=== PATIENT | female | born 1975 | race Caucasian/White ===

== ENCOUNTER 2016-12-25 05:22 | Emergency (ER) | payer SELFPAY ==
[~2016-12-25] VITALS: Ht 160 cm; Wt 90.7 kg
[~2016-12-25 05:22] MED LIST: CARV3.122 PO; HYDR-2666 PO; LISI-334 PO; TORADOL; [UNRECOGNIZED DRUG - CODE] PO
[2016-12-25 05:37] VITALS: BP 181/91
[2016-12-25] MEDS ORDERED: HYDR-2666 PO (05:37)
[2016-12-25] MEDS ORDERED: CYCL5TAB PO (05:37)
--- NOTE | 2016-12-25 05:37 | PHYS DOC ---
Past Medical History Past Medical History: Arthritis Additional Past Medical Histor: CARDIOMYOPATHY, COLITIS Past Surgical History: Additional Past Surgical Histo: TOE Alcohol Use: None Drug Use: None Adult General Chief Complaint Chief Complaint: LOWER BACK PAIN OR INJURY [facility] HPI Patient is a 41 year old female who presents with left low back pain that radiates through to her posterior leg that is constant with intermittent spasms and shooting pains. This pain started after trying to lift something one week ago and is gradually worsening. She denies saddle anesthesia, bowel or bladder dysfunction, numbness, tingling, weakness, abdominal pain, fever or chills, dysuria, constipation, diarrhea. No direct trauma. Review of Systems Review of Systems Constitutional: Denies fever or chills [] Eyes: Denies change in visual acuity, redness, or eye pain [] HENT: Denies nasal congestion or sore throat [] Respiratory: Denies cough or shortness of breath [] Cardiovascular: No additional information not addressed in HPI [] GI: Denies abdominal pain, nausea, vomiting, bloody stools or diarrhea [] : Denies dysuria or hematuria [] Musculoskeletal: Denies joint pain [] Integument: Denies rash or skin lesions [] Neurologic: Denies headache, focal weakness or sensory changes [] Endocrine: Denies polyuria or polydipsia [] Current Medications Current Medications Current Medications Medications (Trade) Dose Ordered Sig/Jama Start Time Stop Time Status Last Admin Dose Admin Acetaminophen/ Hydrocodone Bitart (Lortab 5/325) 1 tab 1X ONCE 12/25/16 06:00 12/25/16 06:01 Cyclobenzaprine HCl (Flexeril) 5 mg 1X ONCE 12/25/16 05:45 12/25/16 05:46 UNV Dexamethasone (Decadron) 10 mg 1X ONCE 12/25/16 06:00 12/25/16 06:01 Allergies Allergies Allergies Coded Allergies Type Severity Reaction Last Updated Verified Sulfa (Sulfonamide Antibiotics) Allergy Intermediate RASH 01/20/15 No Physical Exam Physical Exam Constitutional: Well developed, well nourished, no acute distress, non-toxic appearance. [] HENT: Normocephalic, atraumatic, bilateral external ears normal, oropharynx moist, nose normal. [] Eyes: PERRLA, EOMI. [] Neck: Normal range of motion, supple. [] Cardiovascular:Heart rate regular rhythm [] Lungs & Thorax: Bilateral breath sounds clear to auscultation [] Abdomen: Bowel sounds normal, soft, no tenderness. [] Skin: Warm, dry, no erythema, no rash. [] Back: No midline spinal tenderness, no CVA tenderness. Has left lumbar paraspinal tenderness with no visual or palpable abnormality. Positive straight leg raise on the left [] Extremities: No tenderness, ROM intact, no edema, equal DP pulses 2+. [] Neurologic: Alert and oriented X 3, normal motor function, normal sensory function, no focal deficits noted. [] Psychologic: Affect normal, judgement normal, mood normal. [] Current Patient Data Vital Signs Vital Signs Date Time Temp Pulse Resp B/P (MAP) Pulse Ox O2 Delivery O2 Flow Rate FiO2 12/25/16 05:37 98.0 79 20 97 Room Air 98.0 Course & Med Decision Making Course & Med Decision Making Discussed symptomatic care for likely sciatica. Return precautions given. She understands and agrees with plan. Dragon Disclaimer Dragon Disclaimer This electronic medical record was generated, in whole or in part, using a voice recognition dictation system. Departure Departure Impression: Primary Impression: Low back pain Disposition: HOME, SELF-CARE Condition: STABLE Referrals: JAYLON DON (PCP) Patient Instructions: Sciatica, [id number] Additional Instructions: Take Tylenol or ibuprofen as needed for moderate pain. Take cyclobenzaprine ( Flexeril) for muscle spasm. Take hydrocodone as needed for severe pain. Do not drink, drive or operate heavy machinery after taking hydrocodone or cyclobenzaprine as it may make you sleepy. Follow-up with your primary care doctor within one week. Return for any concerns. Scripts Cyclobenzaprine Hcl (CYCLOBENZAPRINE HCL) 5 Mg Tablet 1 TAB PO TID Y for MUSCLE SPASMS, #10 TAB Prov: Daljit ROWAN MD 12/25/16 Hydrocodone Bit/Acetaminophen (HYDROCODONE-APAP 5-325 ) 1 Each Tablet 1-2 TAB PO PRN Q4-6HRS Y for PAIN for 10 Days, TAB 0 Refills Prov: Daljit ROWAN MD 12/25/16 Problem Qualifiers Primary Impression: Low back pain Chronicity: acute Back pain laterality: left Sciatica presence: with sciatica Sciatica laterality: sciatica of left side Qualified Codes: M54.42 - Lumbago with sciatica, left side Daljit ROWAN MD December 25, 2016 05:37
[2016-12-25] MEDS ORDERED: HYDROcodone/APAP 5/325MG 1 TAB TABLET PO ONE (06:00)
[2016-12-25] MEDS ORDERED: CYCLOBENZAPRINE 10 MG TABLET. PO ONE (06:00)
[2016-12-25] MEDS ORDERED: DEXAMETHASONE 4 MG TABLET PO ONE (06:00)
== END 2016-12-25 05:53 | disposition home or self-care (01) ==
LOC: ER 05:22
DX: M54.5 Low back pain (principal); M19.90 Unspecified osteoarthritis, unspecified site; I42.9 Cardiomyopathy, unspecified; Z88.2 Allergy status to sulfonamides
CPT/HCPCS: 99284; J8540

== ENCOUNTER 2018-04-20 16:50 | Emergency (ER) | payer SELFPAY ==
[~2018-04-20] VITALS: Ht 157.5 cm; Wt 90.7 kg
[~2018-04-20 16:50] MED LIST changes: +CYCL5TAB PO; -HYDR-2666 PO; +HYDR-2758 PO
[2018-04-20 18:08] VITALS: BP 148/92
[2018-04-20] MEDS ORDERED: IBUPROFEN 600 MG TABLET. PO ONE (18:45)
--- NOTE | 2018-04-20 19:16 | RAD ---
AP and lateral right forearm radiographs 04/20/2018 CLINICAL HISTORY: Injury to the right forearm. AP and lateral digital radiographs of the right forearm were obtained. No fracture or dislocation is seen. No radiopaque foreign body is noted. IMPRESSION: No fracture or dislocation of the right forearm is seen. Electronically signed by: Benito Villela MD (04/20/2018 7:13 PM) [facility]
[2018-04-20] MEDS ORDERED: MELO7.5T5 PO (19:25)
--- NOTE | 2018-04-20 19:26 | PHYS DOC ---
Past Medical History Past Medical History: Arthritis, Other Additional Past Medical Histor: CARDIOMYOPATHY, COLITIS Past Surgical History: Additional Past Surgical Histo: TOE Additional Information: 1 PPD Alcohol Use: None Drug Use: None Adult General Chief Complaint Chief Complaint: WRIST PAIN [facility] HPI Patient is a 42 year old [f__sex] who presents with [] Review of Systems Review of Systems Constitutional: Denies fever or chills [] Eyes: Denies change in visual acuity, redness, or eye pain [] HENT: Denies nasal congestion or sore throat [] Respiratory: Denies cough or shortness of breath [] Cardiovascular: No additional information not addressed in HPI [] GI: Denies abdominal pain, nausea, vomiting, bloody stools or diarrhea [] : Denies dysuria or hematuria [] Musculoskeletal: Denies back pain or joint pain [] Integument: Denies rash or skin lesions [] Neurologic: Denies headache, focal weakness or sensory changes [] Endocrine: Denies polyuria or polydipsia [] All other systems were reviewed and found to be within normal limits, except as documented in this note. Current Medications Current Medications Current Medications Medications (Trade) Dose Ordered Sig/Jama Start Time Stop Time Status Last Admin Dose Admin Ibuprofen (Motrin) 600 mg 1X ONCE 04/20/18 18:45 04/20/18 18:46 DC 04/20/18 18:50 600 MG Allergies Allergies Allergies Coded Allergies Type Severity Reaction Last Updated Verified Sulfa (Sulfonamide Antibiotics) Allergy Intermediate RASH 01/20/15 No Physical Exam Physical Exam Constitutional: Well developed, well nourished, no acute distress, non-toxic appearance. [] HENT: Normocephalic, atraumatic, bilateral external ears normal, oropharynx moist, no oral exudates, nose normal. [] Eyes: PERRLA, EOMI, conjunctiva normal, no discharge. [] Neck: Normal range of motion, no tenderness, supple, no stridor. [] Cardiovascular:Heart rate regular rhythm, no murmur [] Lungs & Thorax: Bilateral breath sounds clear to auscultation [] Abdomen: Bowel sounds normal, soft, no tenderness, no masses, no pulsatile masses. [] Skin: Warm, dry, no erythema, no rash. [] Back: No tenderness, no CVA tenderness. [] Extremities: No tenderness, no cyanosis, no clubbing, ROM intact, no edema. [] Neurologic: Alert and oriented X 3, normal motor function, normal sensory function, no focal deficits noted. [] Psychologic: Affect normal, judgement normal, mood normal. [] Current Patient Data Vital Signs Vital Signs Date Time Temp Pulse Resp B/P (MAP) Pulse Ox O2 Delivery O2 Flow Rate FiO2 04/20/18 18:08 99.1 82 16 148/92 (110) 97 Room Air 99.1 EKG EKG [] Radiology/Procedures Radiology/Procedures [] Course & Med Decision Making Course & Med Decision Making Pertinent Labs and Imaging studies reviewed. (See chart for details) [] Dragon Disclaimer Dragon Disclaimer This electronic medical record was generated, in whole or in part, using a voice recognition dictation system. Departure Departure Impression: Primary Impression: Tendonitis Disposition: 01 HOME, SELF-CARE Condition: STABLE Referrals: JAYLON DON (PCP) Patient Instructions: Tendon Injury Additional Instructions: Take the medication as directed. Follow-up with your primary care provider for further evaluation of not improving in one week or return to the emergency department if worsening. Scripts Meloxicam (MOBIC) 7.5 Mg Tablet 1 TAB PO DAILY, #15 TAB 1 Refill Prov: CHLOÉ MARIE APRN 04/20/18 CHLOÉ MARIE APRN Apr 20, 2018 19:26
== END 2018-04-20 19:41 | disposition home or self-care (01) ==
LOC: ER 16:50
DX: M77.8 Other enthesopathies, not elsewhere classified (principal); M19.90 Unspecified osteoarthritis, unspecified site; F17.200 Nicotine dependence, unspecified, uncomplicated; Z98.890 Other specified postprocedural states; Z88.2 Allergy status to sulfonamides
CPT/HCPCS: 29125; 73090; 99284

== ENCOUNTER → 2018-06-03 | Outpatient (CLI) | payer BC ==
[~2018-06-03] MED LIST changes: +MELO7.5T5 PO
--- NOTE | 2018-06-03 14:06 | CARD ---
MR#: [id number] Date of Study: 06/03/2018 Ordering Physician: FABIÁN TEJADA, Referring Physician: FABIÁN TEJADA, Tech: Maribeth Mccauley APPROVED REPORT EXAM: Two-dimensional and M-mode echocardiogram with Doppler and color Doppler. Other Information Quality : AverageHR: 69bpm Rhythm : NSR INDICATION Cardiomyopathy RISK FACTORS Hyperlipidemia Smoking 2D DIMENSIONS RVDd2.8 (2.9-3.5cm)Left Atrium(2D)3.2 (1.6-4.0cm) IVSd0.9 (0.7-1.1cm)Aortic Root(2D)3.4 (2.0-3.7cm) LVDd4.8 (3.9-5.9cm)LVOT Diameter2.0 (1.8-2.4cm) PWd0.9 (0.7-1.1cm)LVDs3.4 (2.5-4.0cm) FS (%) 28.7 %SV58.6 ml Aortic Valve AoV Peak Julius.133.8cm/sAoV VTI27.2cm AO Peak GR.7.2mmHgLVOT Peak Julius.92.9cm/s LVOT VTI 17.85cmAO Mean GR.4mmHg CORIE (VMAX)1.70pe9ENC (VTI)2.15cm2 Mitral Valve MV E Xmcnemdy91.0cm/sMV DECEL IVAH641uo MV A Afkckump02.0cm/sMV HLA81od E/A Ratio1.2MVA (PHT)3.03cm2 TDI E/Lateral E'4.5E/Medial E'8.1 Pulmonary Valve PV Peak Fespspam430.6cm/sPV Peak Grad.6mmHg Tricuspid Valve TR P. Pueijwbf510zl/sRAP JOZVISGW7mkKc TR Peak Gr.20poEfBGWQ77cbXf Pulmonary Vein S1 Zvffqwuo04.2cm/sD2 Bcbqyjxk87.9cm/s PVa brqnpawa560bdpu LEFT VENTRICLE Technically difficult study. The left ventricle is normal size. There is normal left ventricular wall thickness. The left ventricular systolic function is mildly decreased. The ejection fraction is bruce mated at 40%. There is mild global hypokinesis of the left ventricle. Transmitral Doppler flow patter n is Grade II-pseudonormal filling dynamics. RIGHT VENTRICLE The right ventricle is normal size. There is normal right ventricular wall thickness. The right ventr icular systolic function is normal. ATRIA The left atrium size is normal. The right atrium size is normal. The interatrial septum is intact wit h no evidence for an atrial septal defect or patent foramen ovale as noted on 2-D or Doppler imaging. AORTIC VALVE The aortic valve is normal in structure and function. Doppler and Color Flow revealed trace aortic re gurgitation. There is no significant aortic valvular stenosis. Calculated aortic valve area is 2.2 cm 2 with maximum pressure gradient of 8 mmHg and mean pressure gradient of 4 mmHg. MITRAL VALVE The mitral valve is normal in structure and function. Doppler and Color-flow revealed trace mitral re gurgitation. TRICUSPID VALVE The tricuspid valve is not well visualized. Doppler and Color Flow revealed trace tricuspid regurgita tion. PULMONIC VALVE The pulmonic valve is not well visualized. Doppler and Color Flow revealed trace pulmonic valvular re gurgitation. GREAT VESSELS The aortic root is normal in size. Normal pulmonary venous flow (Doppler). The IVC is normal in size and collapses >50% with inspiration. PERICARDIAL EFFUSION There is no evidence of significant pericardial effusion. Critical Notification Critical Value: No <Conclusion> Technically difficult study. The left ventricle is normal size. The left ventricular systolic function is mildly decreased. The ejection fraction is estimated at 40%. There is mild global hypokinesis of the left ventricle. There is no significant aortic valvular stenosis. Calculated aortic valve area is 2.2 cm2 with maximum pressure gradient of 8 mmHg and mean pressure gr adient of 4 mmHg. Doppler and Color Flow revealed trace aortic regurgitation. Doppler and Color-flow revealed trace mitral regurgitation. Doppler and Color Flow revealed trace tricuspid regurgitation. Signed by : Sarath Armando MD Electronically Approved : 06/03/2018 14:06:01
== END | disposition home or self-care (01) ==
LOC: ECHO 09:55
PROVIDERS: ATTEND Family Medicine
DX: I42.8 Other cardiomyopathies (principal); E78.5 Hyperlipidemia, unspecified; F17.210 Nicotine dependence, cigarettes, uncomplicated
CPT/HCPCS: 93306

== ENCOUNTER 2018-09-06 08:45 | Inpatient (IN) | payer SELFPAY ==
[~2018-09-06] VITALS: Ht 157.5 cm; Wt 90.7 kg
[~2018-09-06 08:45] MED LIST changes: +CARV3.1210 PO; -CARV3.122 PO; -HYDR-2758 PO; +HYDR-2761 PO
--- NOTE | 2018-09-06 09:21 | PHYS DOC ---
Past Medical History Past Medical History: Arthritis, Other Additional Past Medical Histor: CARDIOMYOPATHY, COLITIS Past Surgical History: Additional Past Surgical Histo: TOE Smoking: Cigarettes, Less than 1pk/day Alcohol Use: None Drug Use: None Adult General Chief Complaint Chief Complaint: WEAKNESS/GENERALIZED HPI HPI Patient is a 42 year old female who presents to the ER with complaints of generalized weakness. Pt states the sx began yesterday around 1500 when she was packing boxes with her family. Pt states during that time her daughter said that she was speaking funny, like the left side of her mouth wasn't moving correctly and she was slurring her words. Pt denies any recent head injury, headache, nausea, vomiting, vision changes, fever, cough, shortness of breath, swelling of extremities, dizziness, numbness, or tingling. She states that she smokes less than a pack of cigarettes a day and that she has a hx of cardiomyopathy that she takes coreg for. Pt states yesterday she did notice some mild chest discomfort, she currently denies any chest pain or palpitations. Review of Systems Review of Systems Constitutional: Denies fever or chills [] Eyes: Denies change in visual acuity, redness, or eye pain [] HENT: Denies nasal congestion or sore throat [] Respiratory: Denies cough or shortness of breath [] Cardiovascular: Reports mild chest pain yesterday, denies palpitations GI: Denies abdominal pain, nausea, vomiting, or diarrhea [] : Denies dysuria or hematuria [] Musculoskeletal: Denies back pain or joint pain [] Integument: Denies rash or skin lesions [] Neurologic: Denies headache, See HPI [] Complete systems were reviewed and found to be within normal limits, except as documented in this note. Current Medications Current Medications Allergies Allergies Allergies Coded Allergies Type Severity Reaction Last Updated Verified Sulfa (Sulfonamide Antibiotics) Allergy Intermediate RASH 01/20/15 No Physical Exam Physical Exam Constitutional: Well developed, well nourished, no acute distress, non-toxic appearance. [] HENT: Normocephalic, atraumatic, bilateral external ears normal, oropharynx moist, no oral exudates, nose normal. [] Eyes: PERRLA, EOMI, conjunctiva normal, no discharge. [] Neck: Normal range of motion, no tenderness, supple, no stridor. [] Cardiovascular:Heart rate regular rhythm, no murmur [] Lungs & Thorax: Bilateral breath sounds clear to auscultation [] Skin: Warm, dry, no erythema, no rash. [] Extremities: No tenderness, no cyanosis, no clubbing, ROM intact, no edema. [] Neurologic: Alert and oriented X 3, normal motor function, normal sensory function, no focal deficits noted. [] Psychologic: Affect normal, judgement normal, mood normal. [] Current Patient Data Vital Signs Vital Signs Date Time Temp Pulse Resp B/P (MAP) Pulse Ox O2 Delivery O2 Flow Rate FiO2 09/06/18 12:00 78 19 99 09/06/18 09:05 97.7 130/73 (92) Room Air 97.7 Lab Values Laboratory Tests Test 09/06/18 09:00 09/06/18 09:05 09/06/18 10:35 Urine Collection Type Unknown Urine Color Yellow Urine Clarity Clear Urine pH 6.0 Urine Specific [place] 1.025 Urine Protein Negative mg/dL (NEG-TRACE) Urine Glucose (UA) Negative mg/dL (NEG) Urine Ketones (Stick) Negative mg/dL (NEG) Urine Blood Negative (NEG) Urine Nitrite Negative (NEG) Urine Bilirubin Negative (NEG) Urine Urobilinogen Dipstick 1.0 mg/dL (0.2 mg/dL) Urine Leukocyte Esterase Negative (NEG) Urine RBC 0 /HPF (0-2) Urine WBC 1-4 /HPF (0-4) Urine Squamous Epithelial Cells Mod /LPF Urine Bacteria Moderate /HPF (0-FEW) Urine Mucus Mod /LPF POC Urine HCG, Qualitative Hcg negative (Negative) White Blood Count 5.4 x10^3/uL (4.0-11.0) Red Blood Count 4.55 x10^6/uL (3.50-5.40) Hemoglobin 14.3 g/dL (12.0-15.5) Hematocrit 42.9 % (36.0-47.0) Mean Corpuscular Volume 94 fL (79-100) Mean Corpuscular Hemoglobin 31 pg (25-35) Mean Corpuscular Hemoglobin Concent 33 g/dL (31-37) Red Cell Distribution Width 12.9 % (11.5-14.5) Platelet Count 260 x10^3/uL (140-400) Neutrophils (%) (Auto) 61 % (31-73) Lymphocytes (%) (Auto) 28 % (24-48) Monocytes (%) (Auto) 8 % (0-9) Eosinophils (%) (Auto) 3 % (0-3) Basophils (%) (Auto) 0 % (0-3) Neutrophils # (Auto) 3.3 x10^3uL (1.8-7.7) Lymphocytes # (Auto) 1.5 x10^3/uL (1.0-4.8) Monocytes # (Auto) 0.4 x10^3/uL (0.0-1.1) Eosinophils # (Auto) 0.2 x10^3/uL (0.0-0.7) Basophils # (Auto) 0.0 x10^3/uL (0.0-0.2) Prothrombin Time 12.9 SEC (11.7-14.0) Prothrombin Time INR 1.0 (0.8-1.1) Sodium Level 143 mmol/L (136-145) Potassium Level 3.6 mmol/L (3.5-5.1) Chloride Level 105 mmol/L (98-107) Carbon Dioxide Level 28 mmol/L (21-32) Anion Gap 10 (6-14) Blood Urea Nitrogen 11 mg/dL (7-20) Creatinine 0.8 mg/dL (0.6-1.0) Estimated GFR (Cockcroft-Gault) 78.7 BUN/Creatinine Ratio 14 (6-20) Glucose Level 94 mg/dL (70-99) Calcium Level 8.7 mg/dL (8.5-10.1) Magnesium Level 2.2 mg/dL (1.8-2.4) Total Bilirubin 0.9 mg/dL (0.2-1.0) Aspartate Amino Transferase (AST) 22 U/L (15-37) Alanine Aminotransferase (ALT) 30 U/L (14-59) Alkaline Phosphatase 79 U/L (46-116) Troponin I Quantitative < 0.017 ng/mL (0.000-0.055) Total Protein 7.0 g/dL (6.4-8.2) Albumin 3.5 g/dL (3.4-5.0) Albumin/Globulin Ratio 1.0 (1.0-1.7) Laboratory Tests 09/06/18 10:35 Laboratory Tests 09/06/18 10:35 EKG EKG 1028- NSR wtih non-specific T wave abnormality, no STEMI rate of [address] Juárez at 1033 [] Radiology/Procedures Radiology/Procedures PROCEDURE: CT HEAD WO CONTRAST Examination: CT HEAD WO CONTRAST History: weakness, difficulty speaking 1500 yesterday Comparison/Correlation: None Findings: Axial images of the head were obtained without contrast. Ventricles are normal size. No intracranial hemorrhage, midline shift, or mass effect. Bony structures are grossly unremarkable. Impression: No acute process. Consider further evaluation with MRI if able and clinically warranted.[] Course & Med Decision Making Course & Med Decision Making Pertinent Labs and Imaging studies reviewed. (See chart for details) DX; TIA, weakness Ct head was negative for any acute findings, CMP unremarkable, CBC unremarkable , UA unremarkable, Pt/INR WNL, troponin <0.017. NIH stroke scale 0 Pt's HPI concerning for TIA with significant risk factors including smoking, obesity, and cardiomyopathy hx. Pt notified of findings and concerns and agrees with plan of care and admission. 1215- Spoke with Dr. Chinchilla will admit patient for TIA and weakness, will put in consult for neurology. [] Dragon Disclaimer Dragon Disclaimer This electronic medical record was generated, in whole or in part, using a voice recognition dictation system. Departure Departure Impression: Primary Impression: TIA (transient ischemic attack) Additional Impression: Weakness generalized Disposition: ADMITTED INPATIENT Admitting Physician: Ad Chinchilla Condition: STABLE Referrals: FABIÁN TEJADA MD (PCP) NIHSS Stroke Scale NIH Stroke Scale: NIH Stroke Scale Response (Comments) Value Level of Consciousness: 0 Alert/Responsive 0 LOC Questions: 0 Answers both correctly 0 LOC Commands: 0 Performs both tasks 0 Best Gaze: 0 Normal 0 Visual: 0 No visual loss 0 Facial Palsy: 0 Normal, symmetrical 0 Motor - Left Arm 0 No drift 0 Motor - Right Arm 0 No drift 0 Motor - Left Leg 0 No drift 0 Motor: Right Leg 0 No drift 0 Limb Ataxia: 0 Absent 0 Sensory: 0 No loss 0 Best Language: 0 Normal 0 Dysathria: 0 Normal 0 Extinction and Inattention: 0 Normal 0 Total 0 Problem Qualifiers EMLISSA CASTLE APRN Sep 06, 2018 09:21
--- NOTE | 2018-09-06 09:46 | RAD ---
Examination: CT HEAD WO CONTRAST History: weakness, difficulty speaking 1500 yesterday Comparison/Correlation: None Findings: Axial images of the head were obtained without contrast. Ventricles are normal size. No intracranial hemorrhage, midline shift, or mass effect. Bony structures are grossly unremarkable. Impression: No acute process. Consider further evaluation with MRI if able and clinically warranted. Electronically signed by: Nitin Shelton MD (09/06/2018 9:41 AM) [facility]
[2018-09-06 10:36] LABS: BILIRUBIN,URINE NEGATIVE (NEG); CLARITY,URINE CLEAR; COLOR,URINE YELLOW; NITRITE,URINE NEGATIVE (NEG); PROTEIN,URINE NEGATIVE (NEG-TRACE)
[2018-09-06 10:45] LABS: BASO % 0 % (0-3); EOS # 0.2 x10^3/uL (0.0-0.7); EOS % 3 % (0-3); HEMATOCRIT 42.9 % (36.0-47.0); HEMOGLOBIN 14.3 g/dL (12.0-15.5); LYMPH # 1.5 x10^3/uL (1.0-4.8); LYMPH % 28 % (24-48); MEAN CORPUSCULAR HEMOGLOBIN 31 pg (25-35); MEAN CORPUSCULAR HGB CONC 33 g/dL (31-37); MEAN CORPUSCULAR VOLUME 94 fL (79-100); MONO # 0.4 x10^3/uL (0.0-1.1); MONO % 8 % (0-9); NEUT # 3.3 x10^3uL (1.8-7.7); NEUT % 61 % (31-73); PLATELET COUNT 260 x10^3/uL (140-400); RED BLOOD COUNT 4.55 x10^6/uL (3.50-5.40); RED CELL DISTRIBUTION WIDTH 12.9 % (11.5-14.5); WHITE BLOOD COUNT 5.4 x10^3/uL (4.0-11.0)
--- NOTE | 2018-09-06 10:45 | EKG ---
[facility] [address] [place] [address] Test Date: 2018-09-06 Test Time: 10:28:30 Pat Name: DARIUS ESPARZA Department: Room: Gender: F [employer] Equipment [employer]: : 1975 Requested By: MELISSA CASTLE Order Number: [id number] Reading MD: Aleksandr Johnson MD Measurements Intervals [place] Rate: 60 P: 45 FL: 208 QRS: -8 QRSD: 90 T: 49 QT: 410 QTc: 414 Interpretive Statements SINUS RHYTHM Electronically Signed On 09-06-2018 10:55:26 FRUIT STUFFER by Aleksandr Johnson MD
[2018-09-06 10:47] LABS: BACTERIA,URINE MODERATE /HPF (0-FEW); RBC,URINE 0 /HPF (0-2); SQUAMOUS EPITHELIAL CELL,UR MOD /LPF
[2018-09-06 10:55] LABS: PROTHROMBIN TIME PATIENT 12.9 SEC (11.7-14.0)
[2018-09-06 11:03] LABS: CALCIUM 8.7 mg/dL (8.5-10.1); CREATININE 0.8 mg/dL (0.6-1.0); GFR 78.7; POTASSIUM 3.6 mmol/L (3.5-5.1)
[2018-09-06 11:07] LABS: ALBUMIN 3.5 g/dL (3.4-5.0); MAGNESIUM 2.2 mg/dL (1.8-2.4); TOTAL BILIRUBIN 0.9 mg/dL (0.2-1.0)
[2018-09-06] MEDS ORDERED: ASPIRIN 325 MG TABLET PO ONE (12:30)
[2018-09-06 13:32] VITALS: BP 128/84
[2018-09-06] MEDS ORDERED: ASPIRIN RECTAL 300 MG SUPP. PR PRN (14:00)
[2018-09-06] MEDS ORDERED: ACETAMINOPHEN 325 MG TABLET. PO PRN (14:00)
[2018-09-06] MEDS ORDERED: ACETAMINOPHEN 650 MG SUPP.RECT. PR PRN (14:00)
--- NOTE | 2018-09-06 14:29 | PDOC2 ---
NEUROLOGY CONSULT Date of Admission Date of Admission DATE: 09/06/18 TIME: 14:22 Reason for Consult Reason for Consult: Weakness Referring Physician Referring Physician: Dr. Chinchilla PCP: Dr. Betancur Source Source: Caregiver (daughters), Chart review, Patient History of Present Illness History of Present Illness The patient is a 42-year-old right-handed female who did not feel well yesterday. Her daughters say that the patient had trouble speaking, walking, and was weak on both sides. No one ever noticed any type of focal findings such as disconjugate gaze, facial droop, or hemiparesis, although emergency room practitioner states that she had trouble moving the left side of her mouth. The patient says that she has had a stroke in the past. She is under stress because she is moving, but she says that she is moving for a good reason. She does have a significant other. She is feeling much better today. Past Medical History Cardiovascular: Other (cardiomyopathy) CENTRAL NERVOUS SYSTEM: CVA (?) GI: Other (colitis) Past Surgical History Past Surgical History: , Other (toe) Family History Family History: No pertinent hx Social History Social History Has significant other, works in a [employer], or alcohol, occasional tobacco, no street drugs Current Medications Current Medications Current Medications Aspirin (Gabe Aspirin) 325 mg 1X ONCE PO Last administered on 09/06/18at 12:14 ; Start 09/06/18 at 12:30; Stop 09/06/18 at 12:31; Status DC Enoxaparin Sodium (Lovenox 40mg Syringe) 40 mg Q24H SQ ; Start 09/06/18 at 15:00 Acetaminophen (Tylenol) 650 mg PRN Q6HRS PRN PO TEMP > 100.4F; Start 09/06/18 at 14:00 Acetaminophen (Tylenol Supp) 650 mg PRN Q4HRS PRN NV TEMP > 100.4F; Start at 14:00 Aspirin (Ecotrin) 325 mg DAILYWBKFT PO ; Start 09/07/18 at 08:00 Aspirin (Aspirin) 300 mg PRN DAILY PRN NV IF UNABLE TO TAKE PO; Start 09/06/18 at 14:00 Active Scripts Active Mobic (Meloxicam) 7.5 Mg Tablet 1 Tab PO DAILY Cyclobenzaprine Hcl 5 Mg Tablet 1 Tab PO TID PRN Hydrocodone-Apap 5-325 (Hydrocodone Bit/Acetaminophen) 1 Each Tablet 1-2 Tab PO PRN Q4-6HRS PRN 10 Days Reported Vivarin (Caffeine) 200 Mg Tablet 200 Mg PO [Toradol] Hydrocodone-Apap 5-325 (Hydrocodone Bit/Acetaminophen) 1 Each Tablet 1 Tab PO PRN Q6HRS PRN Lisinopril 20 Mg Tablet Unknown Dose PO DAILY Carvedilol 3.125 Mg Tablet Unknown Dose PO BIDWMEALS Allergies Allergies: Coded Allergies: Sulfa (Sulfonamide Antibiotics) (Unverified Allergy, Intermediate, RASH, ) ROS Review of System Negative for fever, chills, weight loss, shortness of breath, chest pain, indigestion, hematochezia, melena, and dysuria. Full 14-point review of systems is negative. Physical Exam Physical Examination General: Well-developed, well-nourished white female in no acute distress HEENT: Normocephalic and�atraumatic.Temporal arteries�pulsatile and nontender. Neck: Supple without bruit, no meningismus� Musculoskeletal: Stability:�see neurologic. Gait exam:�see neurologic. Tone:�see neurologic.� Strength:�see neurologic.� Neurological: Mental Status:�intact, orientation, memory, attention span/concentration, language, fund of knowledge normal. Cranial Nerves:�Pupils equal and reactive to light, extraocular movements are�intact, visual galvin are full to confrontation. Facial sensation is normal. There is no facial asymmetry. Vestibulo-ocular reflex is intact. Palate elevates and tongue protrudes in midline. All other cranial related problems are negative except as mentioned before.�Reflexes:�2+ and symmetric with flexor plantar responses. Motor:�5/5 strength with normal tone and bulk. Coordination:�Finger-nose finger and heel-to -white testing are normal. Rapid alternating movements and fine finger movements are intact. Gait:�Normal, including tandem. Sensory:�Normal pinprick, vibration , light touch, proprioception.� Vitals VITALS Vital Signs Date Time Temp Pulse Resp B/P (MAP) Pulse Ox O2 Delivery O2 Flow Rate FiO2 09/06/18 13:32 97.9 68 18 128/84 (99) 100 Room Air 97.9 Labs Labs Laboratory Tests Test 09/06/18 09:00 09/06/18 09:05 09/06/18 10:35 Urine Collection Type Unknown Urine Color Yellow Urine Clarity Clear Urine pH 6.0 Urine Specific [place] 1.025 Urine Protein Negative mg/dL (NEG-TRACE) Urine Glucose (UA) Negative mg/dL (NEG) Urine Ketones (Stick) Negative mg/dL (NEG) Urine Blood Negative (NEG) Urine Nitrite Negative (NEG) Urine Bilirubin Negative (NEG) Urine Urobilinogen Dipstick 1.0 mg/dL (0.2 mg/dL) Urine Leukocyte Esterase Negative (NEG) Urine RBC 0 /HPF (0-2) Urine WBC 1-4 /HPF (0-4) Urine Squamous Epithelial Cells Mod /LPF Urine Bacteria Moderate /HPF (0-FEW) Urine Mucus Mod /LPF Bedside Urine HCG, Qualitative Hcg negative (Negative) White Blood Count 5.4 x10^3/uL (4.0-11.0) Red Blood Count 4.55 x10^6/uL (3.50-5.40) Hemoglobin 14.3 g/dL (12.0-15.5) Hematocrit 42.9 % (36.0-47.0) Mean Corpuscular Volume 94 fL (79-100) Mean Corpuscular Hemoglobin 31 pg (25-35) Mean Corpuscular Hemoglobin Concent 33 g/dL (31-37) Red Cell Distribution Width 12.9 % (11.5-14.5) Platelet Count 260 x10^3/uL (140-400) Neutrophils (%) (Auto) 61 % (31-73) Lymphocytes (%) (Auto) 28 % (24-48) Monocytes (%) (Auto) 8 % (0-9) Eosinophils (%) (Auto) 3 % (0-3) Basophils (%) (Auto) 0 % (0-3) Neutrophils # (Auto) 3.3 x10^3uL (1.8-7.7) Lymphocytes # (Auto) 1.5 x10^3/uL (1.0-4.8) Monocytes # (Auto) 0.4 x10^3/uL (0.0-1.1) Eosinophils # (Auto) 0.2 x10^3/uL (0.0-0.7) Basophils # (Auto) 0.0 x10^3/uL (0.0-0.2) Prothrombin Time 12.9 SEC (11.7-14.0) Prothromb Time International Ratio 1.0 (0.8-1.1) Sodium Level 143 mmol/L (136-145) Potassium Level 3.6 mmol/L (3.5-5.1) Chloride Level 105 mmol/L (98-107) Carbon Dioxide Level 28 mmol/L (21-32) Anion Gap 10 (6-14) Blood Urea Nitrogen 11 mg/dL (7-20) Creatinine 0.8 mg/dL (0.6-1.0) Estimated GFR (Cockcroft-Gault) 78.7 BUN/Creatinine Ratio 14 (6-20) Glucose Level 94 mg/dL (70-99) Calcium Level 8.7 mg/dL (8.5-10.1) Magnesium Level 2.2 mg/dL (1.8-2.4) Total Bilirubin 0.9 mg/dL (0.2-1.0) Aspartate Amino Transf (AST/SGOT) 22 U/L (15-37) Alanine Aminotransferase (ALT/SGPT) 30 U/L (14-59) Alkaline Phosphatase 79 U/L (46-116) Troponin I Quantitative < 0.017 ng/mL (0.000-0.055) Total Protein 7.0 g/dL (6.4-8.2) Albumin 3.5 g/dL (3.4-5.0) Albumin/Globulin Ratio 1.0 (1.0-1.7) Laboratory Tests Test 09/06/18 09:00 09/06/18 09:05 09/06/18 10:35 Urine Collection Type Unknown Urine Color Yellow Urine Clarity Clear Urine pH 6.0 Urine Specific [place] 1.025 Urine Protein Negative mg/dL (NEG-TRACE) Urine Glucose (UA) Negative mg/dL (NEG) Urine Ketones (Stick) Negative mg/dL (NEG) Urine Blood Negative (NEG) Urine Nitrite Negative (NEG) Urine Bilirubin Negative (NEG) Urine Urobilinogen Dipstick 1.0 mg/dL (0.2 mg/dL) Urine Leukocyte Esterase Negative (NEG) Urine RBC 0 /HPF (0-2) Urine WBC 1-4 /HPF (0-4) Urine Squamous Epithelial Cells Mod /LPF Urine Bacteria Moderate /HPF (0-FEW) Urine Mucus Mod /LPF Bedside Urine HCG, Qualitative Hcg negative (Negative) White Blood Count 5.4 x10^3/uL (4.0-11.0) Red Blood Count 4.55 x10^6/uL (3.50-5.40) Hemoglobin 14.3 g/dL (12.0-15.5) Hematocrit 42.9 % (36.0-47.0) Mean Corpuscular Volume 94 fL (79-100) Mean Corpuscular Hemoglobin 31 pg (25-35) Mean Corpuscular Hemoglobin Concent 33 g/dL (31-37) Red Cell Distribution Width 12.9 % (11.5-14.5) Platelet Count 260 x10^3/uL (140-400) Neutrophils (%) (Auto) 61 % (31-73) Lymphocytes (%) (Auto) 28 % (24-48) Monocytes (%) (Auto) 8 % (0-9) Eosinophils (%) (Auto) 3 % (0-3) Basophils (%) (Auto) 0 % (0-3) Neutrophils # (Auto) 3.3 x10^3uL (1.8-7.7) Lymphocytes # (Auto) 1.5 x10^3/uL (1.0-4.8) Monocytes # (Auto) 0.4 x10^3/uL (0.0-1.1) Eosinophils # (Auto) 0.2 x10^3/uL (0.0-0.7) Basophils # (Auto) 0.0 x10^3/uL (0.0-0.2) Prothrombin Time 12.9 SEC (11.7-14.0) Prothromb Time International Ratio 1.0 (0.8-1.1) Sodium Level 143 mmol/L (136-145) Potassium Level 3.6 mmol/L (3.5-5.1) Chloride Level 105 mmol/L (98-107) Carbon Dioxide Level 28 mmol/L (21-32) Anion Gap 10 (6-14) Blood Urea Nitrogen 11 mg/dL (7-20) Creatinine 0.8 mg/dL (0.6-1.0) Estimated GFR (Cockcroft-Gault) 78.7 BUN/Creatinine Ratio 14 (6-20) Glucose Level 94 mg/dL (70-99) Calcium Level 8.7 mg/dL (8.5-10.1) Magnesium Level 2.2 mg/dL (1.8-2.4) Total Bilirubin 0.9 mg/dL (0.2-1.0) Aspartate Amino Transf (AST/SGOT) 22 U/L (15-37) Alanine Aminotransferase (ALT/SGPT) 30 U/L (14-59) Alkaline Phosphatase 79 U/L (46-116) Troponin I Quantitative < 0.017 ng/mL (0.000-0.055) Total Protein 7.0 g/dL (6.4-8.2) Albumin 3.5 g/dL (3.4-5.0) Albumin/Globulin Ratio 1.0 (1.0-1.7) Images Images CT HEAD WO CONTRAST History: weakness, difficulty speaking 1500 yesterday Comparison/Correlation: None Findings: Axial images of the head were obtained without contrast. Ventricles are normal size. No intracranial hemorrhage, midline shift, or mass effect. Bony structures are grossly unremarkable. Impression: No acute process. Consider further evaluation with MRI if able and clinically warranted. Assessment/Plan Assessment/Plan Impression: Generalized weakness, difficulty speaking, difficulty walking. I'm not picking up on any focal features to suggest that this was a transient ischemic attack. Consider other metabolic problem, psychogenic issues, even seizure. Recommendations: MRI of the brain Echocardiogram Carotid Doppler studies Rehabilitation screening Daily aspirin Check lipid profile Monitor blood pressure. I will consider additional testing including electroencephalogram depending on her course. I fully discussed with the patient and her daughters. Thank you for letting me help with the patient's care. VICKEY PORTER MD Sep 06, 2018 14:29
--- NOTE | 2018-09-06 14:37 | HP ---
ADMIT DATE: 09/06/2018 CHIEF COMPLAINT: Stroke symptoms. HISTORY OF PRESENT ILLNESS: The patient is a pleasant middle-aged female who developed some slurred speech yesterday. She has associated generalized weakness, began about 3 yesterday afternoon when she was packing some boxes. She had some slurred speech and a little bit of right facial droop. Her family noticed it. She denies any recent head injuries. She does smoke a little but less than a half pack per day. She does have a known history of cardiomyopathy and she is on Coreg for that. She did have some mild chest discomfort as well. She tried increasing her home meds, but that did not work, moving makes it worse. I discussed the case with ER physician. We are going to admit the patient and consult Neurology to rule out possible stroke. PAST MEDICAL HISTORY: Cardiomyopathy with 35% EF; ; toe surgery; arthritis; tobacco abuse, less than a pack per day. ALLERGIES: SULFA. FAMILY HISTORY: Diabetes. SOCIAL HISTORY: She does not drink or take drugs. She smokes half pack per day. MEDICATIONS: Reviewed, please refer to the MRAD. She is on 8 meds, including cyclobenzaprine, carvedilol, lisinopril, Mobic, hydrocodone, caffeine. REVIEW OF SYSTEMS: GENERAL: No history of weight change, weakness or fevers. SKIN: No bruising, hair changes or rashes. EYES: No blurred, double or loss of vision. NOSE AND THROAT: No history of nosebleeds, hoarseness or sore throat. HEART: No history of palpitations, chest pain or shortness of breath on exertion. LUNGS: Denies cough, hemoptysis, wheezing or shortness of breath. GASTROINTESTINAL: Denies changes in appetite, nausea, vomiting, diarrhea or constipation. GENITOURINARY: No history of frequency, urgency, hesitancy or nocturia. NEUROLOGIC: She complains of weakness. PSYCHIATRIC: No history of panic, anxiety or depression. ENDOCRINE: No history of heat or cold intolerance, polyuria or polydipsia. EXTREMITIES: Denies muscle weakness, joint pain, pain on walking or stiffness. PHYSICAL EXAMINATION: VITAL SIGNS: Temperature afebrile, pulse 98, respirations 16, blood pressure 120/84. GENERAL: She is alert, cooperative. Her daughters are present. HEART: Normal S1, S2. LUNGS: Clear. ABDOMEN: Soft. EXTREMITIES: No edema. SKIN: No rashes. ENDOCRINE: No thyromegaly. LYMPHATICS: No cervical nodes. HEMATOPOIETIC: No bruising. PSYCHIATRIC: She is stable. LABORATORY DATA: Electrolytes are normal. Hematology is normal. CT of the head is negative. ASSESSMENT AND PLAN: Stroke symptoms. The patient has been admitted. We will consult Neurology. Suspect she will need a carotid Doppler, echo and MRI, but we will await Neurology's input. For now, we will do daily aspirin, PT, OT, speech therapy, home meds, cardiac monitoring. ADIS BUENO DO DR: BHANU/tita JOB#: [id number] / [id number]
[2018-09-06] MEDS ORDERED: ENOXAPARIN 40 MG/0.4 ML SYRINGE. SQ SCH (15:00)
[2018-09-06 15:59] VITALS: BP 110/67
--- NOTE | 2018-09-06 16:10 | NUR ---
SW following pt for anticipated dc needs. Chart reviewed. Pt lives at home with family and is on Room Air. Pt was evaluated by PT/OT and no skilled needs indicated at this time. SW will continue to evaluate dc needs.
--- NOTE | 2018-09-06 16:17 | PDOC2 ---
CARDIAC CONSULT DATE OF CONSULT Date of Consult DATE: 09/06/18 TIME: 16:03 REASON FOR CONSULT Reason for Consult: cardiomyopathy REFERRING PHYSICIAN Referring Physician: Kaylan SOURCE Source: Chart review, Patient HISTORY OF PRESENT ILLNESS HISTORY OF PRESENT ILLNESS This is a pleasant 42 yo female admitted for multiple complains. Reports that she was packing boxes yesterday morning and was doing fine. Reports that at 1245 she started feeling tired. No SOA or any palpitations at that time. She was feeling a little dizzy. from that time to around 6 PM, she developed constellations of symptoms, including dysarthria slurring her speech, word finding, slow to answer questions and answering it differently. Left eye slightly close and puffiness looking to left cheek. No drooling but noted with weakness to LA when elevated. Upon ambulation she was noted to be unsteady and almost falling. She was acting confused. This group of symptoms has never happened before. No prior hx of clotting disorders, aneurysms nor any family hx. No hx of lupus. Denies any OCP but does smoke which she just started about 2 yrs ago likely from stress she said. No recent MVA, falls or any recent injury. No recent infections. No nausea vomiting. No hx of VTE. Positive and known for CM. She has not been regularly taking her medications as well as she lost her insurance at one point which now she is currently eligible with the work she has. Overnight her symptoms have all resolved upon awakening this AM except that she still is a litlle weak. There was no noted convulsions not incontinence at that time as well. PAST MEDICAL HISTORY Cardiovascular: Other ( CM) PAST SURGICAL HISTORY Past Surgical History: , Other (toe surgery) FAMILY HISTORY Family History: Heart Disease SOCIAL HISTORY Smoke: <1 pack per day ALCOHOL: occassional Drugs: None Lives: with Family CURRENT MEDICATIONS CURRENT MEDICATIONS Current Medications Medications (Trade) Dose Ordered Sig/Jama Route PRN Reason Start Time Stop Time Status Last Admin Dose Admin Aspirin (Gabe Aspirin) 325 mg 1X ONCE PO 09/06/18 12:30 09/06/18 12:31 DC 09/06/18 12:14 ALLERGIES ALLERGIES: Coded Allergies: Sulfa (Sulfonamide Antibiotics) (Unverified Allergy, Intermediate, RASH, ) ROS Review of System 14 point ROS evaluated with pertinent positives noted per HPI PHYSICAL EXAM General: Alert, Oriented X3, Cooperative, No acute distress HEENT: Atraumatic, Mucous membr. moist/pink Lungs: Clear to auscultation, Normal air movement Heart: Regular rate (SR), Normal S1, Normal S2 Abdomen: Soft, No tenderness Extremities: No cyanosis, No edema Skin: No breakdown, No significant lesion Neuro: Normal speech, Sensation intact Psych/Mental Status: Mental status NL, Mood NL MUSCULOSKELETAL: Full range of motion without pain VITALS VITALS Vital Signs Date Time Temp Pulse Resp B/P (MAP) Pulse Ox O2 Delivery O2 Flow Rate FiO2 09/06/18 13:32 97.9 68 18 128/84 (99) 100 Room Air 97.9 LABS Lab: Laboratory Tests Test 09/06/18 09:00 09/06/18 09:05 09/06/18 10:35 Urine Collection Type Unknown Urine Color Yellow Urine Clarity Clear Urine pH 6.0 Urine Specific [place] 1.025 Urine Protein Negative mg/dL (NEG-TRACE) Urine Glucose (UA) Negative mg/dL (NEG) Urine Ketones (Stick) Negative mg/dL (NEG) Urine Blood Negative (NEG) Urine Nitrite Negative (NEG) Urine Bilirubin Negative (NEG) Urine Urobilinogen Dipstick 1.0 mg/dL (0.2 mg/dL) Urine Leukocyte Esterase Negative (NEG) Urine RBC 0 /HPF (0-2) Urine WBC 1-4 /HPF (0-4) Urine Squamous Epithelial Cells Mod /LPF Urine Bacteria Moderate /HPF (0-FEW) Urine Mucus Mod /LPF Bedside Urine HCG, Qualitative Hcg negative (Negative) White Blood Count 5.4 x10^3/uL (4.0-11.0) Red Blood Count 4.55 x10^6/uL (3.50-5.40) Hemoglobin 14.3 g/dL (12.0-15.5) Hematocrit 42.9 % (36.0-47.0) Mean Corpuscular Volume 94 fL (79-100) Mean Corpuscular Hemoglobin 31 pg (25-35) Mean Corpuscular Hemoglobin Concent 33 g/dL (31-37) Red Cell Distribution Width 12.9 % (11.5-14.5) Platelet Count 260 x10^3/uL (140-400) Neutrophils (%) (Auto) 61 % (31-73) Lymphocytes (%) (Auto) 28 % (24-48) Monocytes (%) (Auto) 8 % (0-9) Eosinophils (%) (Auto) 3 % (0-3) Basophils (%) (Auto) 0 % (0-3) Neutrophils # (Auto) 3.3 x10^3uL (1.8-7.7) Lymphocytes # (Auto) 1.5 x10^3/uL (1.0-4.8) Monocytes # (Auto) 0.4 x10^3/uL (0.0-1.1) Eosinophils # (Auto) 0.2 x10^3/uL (0.0-0.7) Basophils # (Auto) 0.0 x10^3/uL (0.0-0.2) Prothrombin Time 12.9 SEC (11.7-14.0) Prothromb Time International Ratio 1.0 (0.8-1.1) Sodium Level 143 mmol/L (136-145) Potassium Level 3.6 mmol/L (3.5-5.1) Chloride Level 105 mmol/L (98-107) Carbon Dioxide Level 28 mmol/L (21-32) Anion Gap 10 (6-14) Blood Urea Nitrogen 11 mg/dL (7-20) Creatinine 0.8 mg/dL (0.6-1.0) Estimated GFR (Cockcroft-Gault) 78.7 BUN/Creatinine Ratio 14 (6-20) Glucose Level 94 mg/dL (70-99) Calcium Level 8.7 mg/dL (8.5-10.1) Magnesium Level 2.2 mg/dL (1.8-2.4) Total Bilirubin 0.9 mg/dL (0.2-1.0) Aspartate Amino Transf (AST/SGOT) 22 U/L (15-37) Alanine Aminotransferase (ALT/SGPT) 30 U/L (14-59) Alkaline Phosphatase 79 U/L (46-116) Troponin I Quantitative < 0.017 ng/mL (0.000-0.055) Total Protein 7.0 g/dL (6.4-8.2) Albumin 3.5 g/dL (3.4-5.0) Albumin/Globulin Ratio 1.0 (1.0-1.7) ECHOCARDIOGRAM ECHOCARDIOGRAM <Conclusion> Technically difficult study. The left ventricle is normal size. The left ventricular systolic function is mildly decreased. The ejection fraction is estimated at 40%. There is mild global hypokinesis of the left ventricle. There is no significant aortic valvular stenosis. Calculated aortic valve area is 2.2 cm2 with maximum pressure gradient of 8 mmHg and mean pressure gradient of 4 mmHg. Doppler and Color Flow revealed trace aortic regurgitation. Doppler and Color-flow revealed trace mitral regurgitation. Doppler and Color Flow revealed trace tricuspid regurgitation. DATE: 06/03/18 1406 ASSESSMENT/PLAN ASSESSMENT/PLAN 1. 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 Hx of CM: last EF at 40% 3. Obesity 4. Tobaccoism 5. Noncompliance: has not been taking some of her meds. Recommendations 1. BP controlled. Tele monitor 2. Limited TTE with bubble study. MRI and carotid doppler pending 3. Lipids, TSH. 4. Smoking cessation 5. ASA. hold coreg and lisinopril for now with normotensive BP. SHELLY ARTHUR APRN Sep 06, 2018 16:17
--- NOTE | 2018-09-06 16:19 | RAD ---
DOPPLER CAROTID BILAT Clinical Indication: TIA.. Procedure: Pulsed wave and color-flow duplex imaging was utilized to evaluate the extracranial carotid arteries. Comparison: None. Findings: RIGHT SIDE: Mild atherosclerotic plaque on narayanan-scale images. Mid CCA peak systolic velocity 94 cm/sec. ICA peak systolic velocity 90 cm/sec. The right ICA/CCA ratio is 1.0. Flow within the right vertebral artery and right ECA is directed antegrade. LEFT SIDE: Mild atherosclerotic plaque on narayanan-scale images. Mid CCA peak systolic velocity 87 cm/sec. ICA peak systolic velocity 77 cm/sec. The left ICA/CCA ratio is 0.9. Flow within the left vertebral artery and left ECA is directed antegrade. Carotid legend: CCA = common carotid artery ICA = internal carotid artery ECA = external carotid artery IMPRESSION: No hemodynamically significant stenosis. Electronically signed by: Anam Winslow DO (09/06/2018 4:15 PM) [id number]
[2018-09-06] MEDS ORDERED: DICL75TA PO (16:46)
--- NOTE | 2018-09-06 17:19 | RAD ---
MRI of the brain without contrast 09/06/2018 Clinical History: TIA. Dizziness. Slurred speech. Aphasia. Technique: Unenhanced T1-weighted sagittal and axial, T2-weighted axial and coronal and FLAIR, gradient echo and diffusion-weighted axial images of the brain were obtained. Findings: Comparison is made to the patient's CT scan of the head performed earlier today. The ventricles and sulci are within normal limits in size and configuration. No area of abnormal signal intensity is seen involving brain parenchyma. No extra-axial fluid collection is seen. There is no MRI evidence of acute ischemia/infarction. Mild mucosal thickening in seen scattered throughout the paranasal sinuses. There is a small right mastoid effusion. Normal flow voids are seen within the major vascular structures surrounding the brain parenchyma. Impression: 1. Negative MRI of the brain. 2. Mild paranasal sinus and mastoid disease. Electronically signed by: Benito Villela MD (09/06/2018 5:14 PM) [facility] [id number]
[2018-09-06] MEDS ORDERED: NICOTINE 21MG PATCH. TD PRN (19:15)
[2018-09-06 19:50] VITALS: BP 103/65
[2018-09-06 23:06] VITALS: BP 97/70
[2018-09-07 03:20] VITALS: BP 105/58
[2018-09-07 06:20] LABS: CHOLESTEROL/HDL RATIO 4.6
[2018-09-07 07:20] VITALS: BP 123/69
[2018-09-07] MEDS ORDERED: ASPIRIN ENTERIC COATED 325 MG TABLET.DR. PO SCH (08:00)
--- NOTE | 2018-09-07 10:29 | CARD ---
MR#: [id number] Date of Study: 09/07/2018 Ordering Physician: SHELLY ARTHUR, Referring Physician: ADIS BUENO Tech: Collette Tadeo RDCS APPROVED REPORT EXAM: LIMITED Two-dimensional echocardiogram with contrast. Other Information Quality : GoodHR: 55bpm Rhythm : Bradycardia INDICATION CVA/TIA 2D DIMENSIONS RVDd2.4 (2.9-3.5cm)Left Atrium(2D)3.1 (1.6-4.0cm) IVSd0.9 (0.7-1.1cm)Aortic Root(2D)3.0 (2.0-3.7cm) LVDd5.7 (3.9-5.9cm)PWd0.9 (0.7-1.1cm) LVDs4.5 (2.5-4.0cm)FS (%) 21.4 % SV68.1 mlLVEF(%)42.9 (>50%) Tricuspid Valve TR P. [id number] TR Peak Gr.[id number] LEFT VENTRICLE The left ventricle is normal size. There is normal left ventricular wall thickness. The left ventricu lar systolic function is mildly impaired. The Ejection Fraction is 45%. There is global hypokinesis o f the left ventricle. RIGHT VENTRICLE The right ventricle is normal size. There is normal right ventricular wall thickness. The right ventr icular systolic function is normal. ATRIA The left atrium size is normal. The right atrium size is normal. Injection of bubbles documented no i nteratrial shunt. AORTIC VALVE The aortic valve is normal in structure and function. The aortic valve is trileaflet. MITRAL VALVE The mitral valve is normal in structure and function. There is no evidence of mitral valve prolapse. TRICUSPID VALVE The tricuspid valve is normal in structure and function. Doppler and Color Flow revealed trace tricus pid regurgitation. The PA pressure was estimated at 19 mmHg. GREAT VESSELS The aortic root is normal in size. The ascending aorta is normal in size. The IVC is normal in size a nd collapses >50% with inspiration. PERICARDIAL EFFUSION There is no evidence of significant pericardial effusion. Critical Notification Critical Value: No <Conclusion> The left ventricular systolic function is mildly impaired. The Ejection Fraction is 45%. Doppler and Color Flow revealed trace tricuspid regurgitation. The PA pressure was estimated at 19 mmHg. There is no evidence of significant pericardial effusion. Injection of bubbles documented no interatrial shunt. Signed by : Jesus Alberto Wang, Electronically Approved : 09/07/2018 10:26:59
--- NOTE | 2018-09-07 10:39 | PDOC ---
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 No need for additional neurologic testing Okay for discharge I counseled the patient to stop smoking Discussed with the patient and her significant other. Subjective No complaints Objective Vital Signs Date Time Temp Pulse Resp B/P (MAP) Pulse Ox O2 Delivery O2 Flow Rate FiO2 09/07/18 08:00 Room Air 09/07/18 07:20 97.5 68 18 123/69 (87) 99 97.5 Intake and Output 09/07/18 07:01 Intake Total 700 ml Balance 700 ml Intake Oral 700 ml # Voids 7 PHYSICAL EXAM Alert. Oriented to time, place and person. PERRL. EOMI. CN: no focal findings. Muscle tone: normal. Muscle strength: 5/5 DTR: 2+ Plantar reflex: flexor Gait: not examined in bed. Sensory exam: no abnormal findings. No cerebellar signs elicited. Review of Relevant I have reviewed the following items felicia (where applicable) has been applied. Labs Laboratory Tests Test 09/06/18 09:00 09/06/18 09:05 09/06/18 10:35 09/07/18 03:45 Urine Collection Type Unknown Urine Color Yellow Urine Clarity Clear Urine pH 6.0 Urine Specific [place] 1.025 Urine Protein Negative mg/dL (NEG-TRACE) Urine Glucose (UA) Negative mg/dL (NEG) Urine Ketones (Stick) Negative mg/dL (NEG) Urine Blood Negative (NEG) Urine Nitrite Negative (NEG) Urine Bilirubin Negative (NEG) Urine Urobilinogen Dipstick 1.0 mg/dL (0.2 mg/dL) Urine Leukocyte Esterase Negative (NEG) Urine RBC 0 /HPF (0-2) Urine WBC 1-4 /HPF (0-4) Urine Squamous Epithelial Cells Mod /LPF Urine Bacteria Moderate /HPF (0-FEW) Urine Mucus Mod /LPF Bedside Urine HCG, Qualitative Hcg negative (Negative) White Blood Count 5.4 x10^3/uL (4.0-11.0) Red Blood Count 4.55 x10^6/uL (3.50-5.40) Hemoglobin 14.3 g/dL (12.0-15.5) Hematocrit 42.9 % (36.0-47.0) Mean Corpuscular Volume 94 fL (79-100) Mean Corpuscular Hemoglobin 31 pg (25-35) Mean Corpuscular Hemoglobin Concent 33 g/dL (31-37) Red Cell Distribution Width 12.9 % (11.5-14.5) Platelet Count 260 x10^3/uL (140-400) Neutrophils (%) (Auto) 61 % (31-73) Lymphocytes (%) (Auto) 28 % (24-48) Monocytes (%) (Auto) 8 % (0-9) Eosinophils (%) (Auto) 3 % (0-3) Basophils (%) (Auto) 0 % (0-3) Neutrophils # (Auto) 3.3 x10^3uL (1.8-7.7) Lymphocytes # (Auto) 1.5 x10^3/uL (1.0-4.8) Monocytes # (Auto) 0.4 x10^3/uL (0.0-1.1) Eosinophils # (Auto) 0.2 x10^3/uL (0.0-0.7) Basophils # (Auto) 0.0 x10^3/uL (0.0-0.2) Prothrombin Time 12.9 SEC (11.7-14.0) Prothromb Time International Ratio 1.0 (0.8-1.1) Sodium Level 143 mmol/L (136-145) Potassium Level 3.6 mmol/L (3.5-5.1) Chloride Level 105 mmol/L (98-107) Carbon Dioxide Level 28 mmol/L (21-32) Anion Gap 10 (6-14) Blood Urea Nitrogen 11 mg/dL (7-20) Creatinine 0.8 mg/dL (0.6-1.0) Estimated GFR (Cockcroft-Gault) 78.7 BUN/Creatinine Ratio 14 (6-20) Glucose Level 94 mg/dL (70-99) Calcium Level 8.7 mg/dL (8.5-10.1) Magnesium Level 2.2 mg/dL (1.8-2.4) Total Bilirubin 0.9 mg/dL (0.2-1.0) Aspartate Amino Transf (AST/SGOT) 22 U/L (15-37) Alanine Aminotransferase (ALT/SGPT) 30 U/L (14-59) Alkaline Phosphatase 79 U/L (46-116) Troponin I Quantitative < 0.017 ng/mL (0.000-0.055) Total Protein 7.0 g/dL (6.4-8.2) Albumin 3.5 g/dL (3.4-5.0) Albumin/Globulin Ratio 1.0 (1.0-1.7) Thyroid Stimulating Hormone (TSH) 1.318 uIU/mL (0.358-3.74) Triglycerides Level 121 mg/dL (0-150) Cholesterol Level 197 mg/dL (0-200) LDL Cholesterol, Calculated 130 mg/dL (0-100) VLDL Cholesterol, Calculated 24 mg/dL (0-40) Non-HDL Cholesterol Calculated 154 mg/dL (0-129) HDL Cholesterol 43 mg/dL (40-60) Cholesterol/HDL Ratio 4.6 Laboratory Tests Test 09/06/18 10:35 09/07/18 03:45 White Blood Count 5.4 x10^3/uL (4.0-11.0) Red Blood Count 4.55 x10^6/uL (3.50-5.40) Hemoglobin 14.3 g/dL (12.0-15.5) Hematocrit 42.9 % (36.0-47.0) Mean Corpuscular Volume 94 fL (79-100) Mean Corpuscular Hemoglobin 31 pg (25-35) Mean Corpuscular Hemoglobin Concent 33 g/dL (31-37) Red Cell Distribution Width 12.9 % (11.5-14.5) Platelet Count 260 x10^3/uL (140-400) Neutrophils (%) (Auto) 61 % (31-73) Lymphocytes (%) (Auto) 28 % (24-48) Monocytes (%) (Auto) 8 % (0-9) Eosinophils (%) (Auto) 3 % (0-3) Basophils (%) (Auto) 0 % (0-3) Neutrophils # (Auto) 3.3 x10^3uL (1.8-7.7) Lymphocytes # (Auto) 1.5 x10^3/uL (1.0-4.8) Monocytes # (Auto) 0.4 x10^3/uL (0.0-1.1) Eosinophils # (Auto) 0.2 x10^3/uL (0.0-0.7) Basophils # (Auto) 0.0 x10^3/uL (0.0-0.2) Prothrombin Time 12.9 SEC (11.7-14.0) Prothromb Time International Ratio 1.0 (0.8-1.1) Sodium Level 143 mmol/L (136-145) Potassium Level 3.6 mmol/L (3.5-5.1) Chloride Level 105 mmol/L (98-107) Carbon Dioxide Level 28 mmol/L (21-32) Anion Gap 10 (6-14) Blood Urea Nitrogen 11 mg/dL (7-20) Creatinine 0.8 mg/dL (0.6-1.0) Estimated GFR (Cockcroft-Gault) 78.7 BUN/Creatinine Ratio 14 (6-20) Glucose Level 94 mg/dL (70-99) Calcium Level 8.7 mg/dL (8.5-10.1) Magnesium Level 2.2 mg/dL (1.8-2.4) Total Bilirubin 0.9 mg/dL (0.2-1.0) Aspartate Amino Transf (AST/SGOT) 22 U/L (15-37) Alanine Aminotransferase (ALT/SGPT) 30 U/L (14-59) Alkaline Phosphatase 79 U/L (46-116) Troponin I Quantitative < 0.017 ng/mL (0.000-0.055) Total Protein 7.0 g/dL (6.4-8.2) Albumin 3.5 g/dL (3.4-5.0) Albumin/Globulin Ratio 1.0 (1.0-1.7) Thyroid Stimulating Hormone (TSH) 1.318 uIU/mL (0.358-3.74) Triglycerides Level 121 mg/dL (0-150) Cholesterol Level 197 mg/dL (0-200) LDL Cholesterol, Calculated 130 mg/dL (0-100) VLDL Cholesterol, Calculated 24 mg/dL (0-40) Non-HDL Cholesterol Calculated 154 mg/dL (0-129) HDL Cholesterol 43 mg/dL (40-60) Cholesterol/HDL Ratio 4.6 Medications Current Medications Aspirin (Gabe Aspirin) 325 mg 1X ONCE PO Last administered on 09/06/18at 12:14 ; Start 09/06/18 at 12:30; Stop 09/06/18 at 12:31; Status DC Enoxaparin Sodium (Lovenox 40mg Syringe) 40 mg Q24H SQ Last administered on 09/06at 16:33; Start 09/06/18 at 15:00 Acetaminophen (Tylenol) 650 mg PRN Q6HRS PRN PO TEMP > 100.4F; Start 09/06/18 at 14:00 Acetaminophen (Tylenol Supp) 650 mg PRN Q4HRS PRN GA TEMP > 100.4F; Start at 14:00 Aspirin (Ecotrin) 325 mg DAILYWBKFT PO Last administered on 09/07/18at 08:30; Start 09/07/18 at 08:00 Aspirin (Aspirin) 300 mg PRN DAILY PRN GA IF UNABLE TO TAKE PO; Start 09/06/18 at 14:00 Nicotine (Nicoderm Cq 21mg) 1 patch PRN DAILY PRN TD SMOKING CESSATION; Start 09/06/18 at 19:15 Active Scripts Active Reported Diclofenac Sodium 75 Mg Tablet.dr 75 Mg PO PRN BID PRN Lisinopril 20 Mg Tablet Unknown Dose PO DAILY Carvedilol (Carvedilol) 3.125 Mg Tablet Unknown Dose PO BIDWMEALS Vitals/I & O Vital Sign - Last 24 Hours 09/06/18 09/06/18 09/06/18 09/06/18 11:00 11:30 12:00 12:30 Pulse 64 58 78 62 Resp 14 14 19 14 Pulse Ox 99 99 99 99 09/06/18 09/06/18 09/06/18 09/06/18 13:32 15:30 15:59 19:40 Temp 97.9 97.8 97.9 97.8 Pulse 68 68 Resp 18 18 B/P (MAP) 128/84 (99) 110/67 (81) Pulse Ox 100 97 O2 Delivery Room Air Room Air Room Air Room Air 09/06/18 09/06/18 09/07/18 09/07/18 19:50 23:06 03:20 07:20 Temp 97.8 98.3 97.9 97.5 97.8 98.3 97.9 97.5 Pulse 67 63 59 68 Resp 16 16 16 18 B/P (MAP) 103/65 (78) 97/70 (79) 105/58 (74) 123/69 (87) Pulse Ox 96 98 98 99 O2 Delivery Room Air Room Air Room Air Room Air 09/07/18 08:00 O2 Delivery Room Air Intake and Output 09/06/18 09/06/18 09/07/18 15:01 23:01 07:01 Intake Total 400 ml 300 ml Balance 400 ml 300 ml Images MRI of the brain without contrast 09/06/2018 The ventricles and sulci are within normal limits in size and configuration. No area of abnormal signal intensity is seen involving brain parenchyma. No extra-axial fluid collection is seen. There is no MRI evidence of acute ischemia/infarction. Mild mucosal thickening in seen scattered throughout the paranasal sinuses. There is a small right mastoid effusion. Normal flow voids are seen within the major vascular structures surrounding the brain parenchyma. Impression: 1. Negative MRI of the brain. 2. Mild paranasal sinus and mastoid disease. DOPPLER CAROTID BILAT RIGHT SIDE: Mild atherosclerotic plaque on narayanan-scale images. Mid CCA peak systolic velocity 94 cm/sec. ICA peak systolic velocity 90 cm/sec. The right ICA/CCA ratio is 1.0. Flow within the right vertebral artery and right ECA is directed antegrade. LEFT SIDE: Mild atherosclerotic plaque on narayanan-scale images. Mid CCA peak systolic velocity 87 cm/sec. ICA peak systolic velocity 77 cm/sec. The left ICA/CCA ratio is 0.9. Flow within the left vertebral artery and left ECA is directed antegrade. Carotid legend: CCA = common carotid artery ICA = internal carotid artery ECA = external carotid artery IMPRESSION: No hemodynamically significant stenosis. Echo: LEFT VENTRICLE The left ventricle is normal size. There is normal left ventricular wall thickness. The left ventricular systolic function is mildly impaired. The Ejection Fraction is 45%. There is global hypokinesis of the left ventricle. RIGHT VENTRICLE The right ventricle is normal size. There is normal right ventricular wall thickness. The right ventricular systolic function is normal. ATRIA The left atrium size is normal. The right atrium size is normal. Injection of bubbles documented no interatrial shunt. AORTIC VALVE The aortic valve is normal in structure and function. The aortic valve is trileaflet. MITRAL VALVE The mitral valve is normal in structure and function. There is no evidence of mitral valve prolapse. TRICUSPID VALVE The tricuspid valve is normal in structure and function. Doppler and Color Flow revealed trace tricuspid regurgitation. The PA pressure was estimated at 19 mmHg. GREAT VESSELS The aortic root is normal in size. The ascending aorta is normal in size. The IVC is normal in size and collapses >50% with inspiration. PERICARDIAL EFFUSION There is no evidence of significant pericardial effusion. Critical Notification Critical Value: No <Conclusion> The left ventricular systolic function is mildly impaired. The Ejection Fraction is 45%. Doppler and Color Flow revealed trace tricuspid regurgitation. The PA pressure was estimated at 19 mmHg. There is no evidence of significant pericardial effusion. Injection of bubbles documented no interatrial shunt. VICKEY PORTER MD Sep 07, 2018 10:39
[2018-09-07 10:48] VITALS: BP 104/62
--- NOTE | 2018-09-07 12:58 | PDOC3 ---
Discharge Summary Visit Information Date of Admission: Sep 06, 2018 Date of Discharge: Sep 07, 2018 Admitting Diagnosis: TIA Admitting Diagnosis Comment: Cataplexy Final Diagnosis Problems Medical Problems: (1) TIA (transient ischemic attack) Status: Acute (2) Weakness generalized Status: Acute Brief Hospital Course Allergies Allergies Coded Allergies Type Severity Reaction Last Updated Verified Sulfa (Sulfonamide Antibiotics) Allergy Intermediate RASH 01/20/15 No Vital Signs Vital Signs Date Time Temp Pulse Resp B/P (MAP) Pulse Ox O2 Delivery O2 Flow Rate FiO2 09/07/18 10:48 98.0 59 17 104/62 (76) 100 Room Air 98.0 Lab Results Laboratory Tests Test 09/06/18 09:00 09/06/18 09:05 09/06/18 10:35 09/07/18 03:45 Urine Collection Type Unknown Urine Color Yellow Urine Clarity Clear Urine pH 6.0 Urine Specific [place] 1.025 Urine Protein Negative mg/dL (NEG-TRACE) Urine Glucose (UA) Negative mg/dL (NEG) Urine Ketones (Stick) Negative mg/dL (NEG) Urine Blood Negative (NEG) Urine Nitrite Negative (NEG) Urine Bilirubin Negative (NEG) Urine Urobilinogen Dipstick 1.0 mg/dL (0.2 mg/dL) Urine Leukocyte Esterase Negative (NEG) Urine RBC 0 /HPF (0-2) Urine WBC 1-4 /HPF (0-4) Urine Squamous Epithelial Cells Mod /LPF Urine Bacteria Moderate /HPF (0-FEW) Urine Mucus Mod /LPF Bedside Urine HCG, Qualitative Hcg negative (Negative) White Blood Count 5.4 x10^3/uL (4.0-11.0) Red Blood Count 4.55 x10^6/uL (3.50-5.40) Hemoglobin 14.3 g/dL (12.0-15.5) Hematocrit 42.9 % (36.0-47.0) Mean Corpuscular Volume 94 fL (79-100) Mean Corpuscular Hemoglobin 31 pg (25-35) Mean Corpuscular Hemoglobin Concent 33 g/dL (31-37) Red Cell Distribution Width 12.9 % (11.5-14.5) Platelet Count 260 x10^3/uL (140-400) Neutrophils (%) (Auto) 61 % (31-73) Lymphocytes (%) (Auto) 28 % (24-48) Monocytes (%) (Auto) 8 % (0-9) Eosinophils (%) (Auto) 3 % (0-3) Basophils (%) (Auto) 0 % (0-3) Neutrophils # (Auto) 3.3 x10^3uL (1.8-7.7) Lymphocytes # (Auto) 1.5 x10^3/uL (1.0-4.8) Monocytes # (Auto) 0.4 x10^3/uL (0.0-1.1) Eosinophils # (Auto) 0.2 x10^3/uL (0.0-0.7) Basophils # (Auto) 0.0 x10^3/uL (0.0-0.2) Prothrombin Time 12.9 SEC (11.7-14.0) Prothromb Time International Ratio 1.0 (0.8-1.1) Sodium Level 143 mmol/L (136-145) Potassium Level 3.6 mmol/L (3.5-5.1) Chloride Level 105 mmol/L (98-107) Carbon Dioxide Level 28 mmol/L (21-32) Anion Gap 10 (6-14) Blood Urea Nitrogen 11 mg/dL (7-20) Creatinine 0.8 mg/dL (0.6-1.0) Estimated GFR (Cockcroft-Gault) 78.7 BUN/Creatinine Ratio 14 (6-20) Glucose Level 94 mg/dL (70-99) Calcium Level 8.7 mg/dL (8.5-10.1) Magnesium Level 2.2 mg/dL (1.8-2.4) Total Bilirubin 0.9 mg/dL (0.2-1.0) Aspartate Amino Transf (AST/SGOT) 22 U/L (15-37) Alanine Aminotransferase (ALT/SGPT) 30 U/L (14-59) Alkaline Phosphatase 79 U/L (46-116) Troponin I Quantitative < 0.017 ng/mL (0.000-0.055) Total Protein 7.0 g/dL (6.4-8.2) Albumin 3.5 g/dL (3.4-5.0) Albumin/Globulin Ratio 1.0 (1.0-1.7) Thyroid Stimulating Hormone (TSH) 1.318 uIU/mL (0.358-3.74) Triglycerides Level 121 mg/dL (0-150) Cholesterol Level 197 mg/dL (0-200) LDL Cholesterol, Calculated 130 mg/dL (0-100) VLDL Cholesterol, Calculated 24 mg/dL (0-40) Non-HDL Cholesterol Calculated 154 mg/dL (0-129) HDL Cholesterol 43 mg/dL (40-60) Cholesterol/HDL Ratio 4.6 Laboratory Tests Test 09/07/18 03:45 Triglycerides Level 121 mg/dL (0-150) Cholesterol Level 197 mg/dL (0-200) LDL Cholesterol, Calculated 130 mg/dL (0-100) VLDL Cholesterol, Calculated 24 mg/dL (0-40) Non-HDL Cholesterol Calculated 154 mg/dL (0-129) HDL Cholesterol 43 mg/dL (40-60) Cholesterol/HDL Ratio 4.6 Brief Hospital Course The patient is a pleasant middle-aged female who developed some slurred speech yesterday. She has associated generalized weakness, began about 3 yesterday afternoon when she was packing some boxes. She had some slurred speech and a little bit of right facial droop. Her family noticed it. She denies any recent head injuries. She does smoke a little but less than a half pack per day. She does have a known history of cardiomyopathy and she is on Coreg for that. She did have some mild chest discomfort as well. She tried increasing her home meds, but that did not work, moving makes it worse. I discussed the case with ER physician. We are going to admit the patient and consult Neurology to rule out possible stroke. She was admitted to the medical floor for observation. She was evaluated from the cardiological and neurological standpoint of view. Her workup regarding potential etiology for her symptoms was negative. The patient was deemed appropriate from a neurological and cardiological standpoint of view to be dismissed. Counseling regarding smoking cessation was given to the patient in detail. She understands and acknowledges the importance of the wrist modification in order to ensure a better outcome for her life. She will be following up with her primary care physician. Signs and symptoms of alarm were discussed prior to discharge CONCERNS ADDRESSED TO THE BEST OF MY ABILITIES Discharge Information Condition at Discharge: Improved Disposition/Orders: D/C to Home Scheduled Carvedilol (Carvedilol ) 3.125 Mg Tablet, Unknown Dose PO BIDWMEALS, (Reported ) Entered as Reported by: JORGE RODGERS on 01/20/15 1446 Last Action: Last Taken Edited on 09/06/18 170 by HOLLY JONES Lisinopril (Lisinopril) 20 Mg Tablet, Unknown Dose PO DAILY for FOR HYPERTENSION , #30 Ref 0 (Reported) Entered as Reported by: JORGE RODGERS on 01/20/15 1446 Last Action: Last Taken Edited on 09/06/181654 by HOLLY JONES Scheduled PRN Diclofenac Sodium (Diclofenac Sodium) 75 Mg Tablet.dr, 75 MG PO PRN BID PRN for PAIN, (Reported) Entered as Reported by: HOLLY JONES on 09/06/181645 Last Taken: Unknown Dose on Unknown Date & Time Last Action: Reviewed on 09/06/181645 by HOLLY JONES Discontinued Medications [Toradol] , (Reported) Entered as Reported by: JORGE RODGERS on 01/20/15 1446 Last Action: Discontinued on 09/06/181654 by PATRICIA MEANS MD Sep 07, 2018 12:58
--- NOTE | 2018-09-07 13:20 | PDOC ---
CARDIO Progress Notes Date and Time Date of Service 09/07/2018 Time of Evaluation 1300 Subjective Subjective: No Chest Pain, No shortness of breath, No Palpitations Vitals Vitals Vital Signs Date Time Temp Pulse Resp B/P (MAP) Pulse Ox O2 Delivery O2 Flow Rate FiO2 09/07/18 10:48 98.0 59 17 104/62 (76) 100 Room Air 98.0 Weight Weight [ ] Input and Output Intake and Output Intake and Output 09/07/18 07:01 Intake Total 700 ml Balance 700 ml Intake Oral 700 ml # Voids 7 Laboratory Labs Laboratory Tests Test 09/07/18 03:45 Triglycerides Level 121 mg/dL (0-150) Cholesterol Level 197 mg/dL (0-200) LDL Cholesterol, Calculated 130 mg/dL (0-100) VLDL Cholesterol, Calculated 24 mg/dL (0-40) Non-HDL Cholesterol Calculated 154 mg/dL (0-129) HDL Cholesterol 43 mg/dL (40-60) Cholesterol/HDL Ratio 4.6 Physical Exam HEENT: Neck Supple W Full Motion Chest: Symmetric LUNGS: Clear to Auscultation Heart: S1S2, RRR Abdomen: Soft N/T Extremities: No Edema, No Calf Tenderness Neurology: alert, oriented, follow commands Assessment Assessment 1. Cataplexy due to stress per neurology rather than TIA: testing negative for acute CVA. 2. Hx of CM: EF at 45%, neg for intratrial shunt 3. Obesity 4. Tobaccoism 5. Noncompliance: has not been taking some of her meds. Recommendations 1. BP controlled. Home with toprol XL 12.5 mg and lisinopril 5 mg daily. Lipitor 20 mg qhs. Rx provided. Continue ASA 2. Home BP monitoring BID in the next week, discussed with staff and pt. 3. Smoking cessation. Contraception without hormones advised. Discussed with staff. 4. Follow up in office in 1 month SHELLY ARTHUR APRN Sep 07, 2018 13:20
[2018-09-07] MEDS ORDERED: ATOR20TA58 PO (13:23)
[2018-09-07] MEDS ORDERED: LISI-338 PO (13:23)
[2018-09-07] MEDS ORDERED: ASPI325T11 PO (13:23)
[2018-09-07] MEDS ORDERED: METO-239 PO (13:23)
--- NOTE | 2018-09-07 13:30 | NUR ---
Discharge Note: [facility] Discharge instructions and discharge home medications reviewed with Patient and a copy given. All questions have been answered and understanding verbalized. The following instructions and handouts were given: f/u with pcp within two weeks. F/U with cardiology as scheduled. Discontinued lines and drains: Peripheral IV intact. Patient discharged to Home or Self Care with Spouse via [facility].
== END 2018-09-07 13:30 | disposition home or self-care (01) | DRG 69 ==
LOC: ER 08:45 → 6 SOUTH 12:16
PROVIDERS: ADMIT Internal Medicine; ATTEND Internal Medicine
DX: G45.9 Transient cerebral ischemic attack, unspecified (principal); I42.9 Cardiomyopathy, unspecified; E66.9 Obesity, unspecified; F17.210 Nicotine dependence, cigarettes, uncomplicated; G47.411 Narcolepsy with cataplexy; I10 Essential (primary) hypertension; M19.90 Unspecified osteoarthritis, unspecified site; Z79.899 Other long term (current) drug therapy; Z83.3 Family history of diabetes mellitus; Z86.73 Personal history of transient ischemic attack (TIA), and cerebral infarction without residual deficits; Z91.19 Patient's noncompliance with other medical treatment and regimen; Z68.36 Body mass index [BMI] 36.0-36.9, adult; Z88.2 Allergy status to sulfonamides; Z71.6 Tobacco abuse counseling
CPT/HCPCS: 99285; C8924; 36415; 70450; 70551; 80053; 80061; 81001; 81025; 83735; 84443; 84484; 85025; 85610; 87086; 93005; 93880; 99406; J1650; 92610; G0378

== ENCOUNTER 2020-08-06 09:27 | Emergency (ER) | payer SELFPAY ==
[~2020-08-06] VITALS: Ht 157.5 cm; Wt 110.0 kg
[~2020-08-06 09:27] MED LIST changes: +ASPI325T11 PO; +ATOR20TA58 PO; +DICL75TA PO; -LISI-334 PO; +LISI-517 PO; +LISI20TA18 PO; +METO-239 PO
[2020-08-06 12:12] VITALS: BP 119/79
--- NOTE | 2020-08-06 13:21 | RAD ---
EXAM: Right foot, 3 views. HISTORY: Pain. COMPARISON: None. FINDINGS: 3 views the right foot are obtained. There is chronic deformity of the first proximal phala nx and widening of the first interphalangeal joint. There is suspected degenerative subchondral cyst formation and subchondral sclerosis involving the first metatarsal head. No avascular necrosis is see n. There is a small plantar spur. IMPRESSION: 1. Chronic appearing changes involving the first phalanx. 2. No acute osseous finding. Electronically signed by: Rose Sutton MD (08/06/2020 1:19 PM) [id number]
--- NOTE | 2020-08-06 13:33 | ED.ADGEN ---
Past Medical History Past Medical History: Other Additional Past Medical Histor: cardiomyopathy Past Surgical History: Additional Past Surgical Histo: TOE infection Smoking Status: Current Every Day Smoker Alcohol Use: Occasionally Drug Use: None General Adult EDM: Chief Complaint: FOOT INJURY PAIN HPI: HPI: Patient is a 44 year old female who presents emergency department with co mplaints of right midfoot pain that has been ongoing for 6 months. Patient states that back in January she rolled her foot on a water bottle and injured it. Reports increased pain with any weightbearing, she denies any decreased range of motion. Patient reports taking Tylenol and ibuprofen with no relief of her pain. She currently rates pain a 9 out of 10 on the pain scale, she denies any alleviating factors. She denies any decreased sensation, numbness or tingling of the affected extremity. Review of Systems: Review of Systems: Complete ROS is negative unless otherwise noted in HPI. Allergies: Allergies: Allergies Coded Allergies Type Severity Reaction Last Updated Verified Sulfa (Sulfonamide Antibiotics) Allergy Intermediate RASH 01/20/15 No Physical Exam: PE: See Above Constitutional: Well developed, well nourished, no acute distress, non-toxic appearance. [] HENT: Normocephalic, atraumatic, bilateral external ears normal, nose normal. [] Eyes: PERRLA, EOMI, conjunctiva normal, no discharge. [] Neck: Normal range of motion, no stridor. [] Cardiovascular:Heart rate regular rhythm Lungs & Thorax: Respirations even and unlabored, no retractions, no respiratory distress Skin: Warm, dry, no erythema, no rash. [] Extremities: Right foot: Midfoot tenderness over the third and fourth meta tarsals without obvious deformity, crepitus, or bruising, No cyanosis, ROM intact, no edema. [] Neurologic: Alert and oriented X 3, no focal deficits noted. [] Psychologic: Affect normal, judgement normal, mood normal. [] Current Patient Data: Vital Signs: Vital Signs Date Time Temp Pulse Resp B/P (MAP) Pulse Ox O2 Delivery O2 Flow Rate FiO2 08/06/20 12:12 98.3 76 119/79 (92) 99 98.3 08/06/20 10:42 18 Room Air EKG: EKG: [] Heart Score: Risk Factors: Risk Factors: DM, Current or recent (<one month) smoker, HTN, HLP, family history of CAD, obesity. Risk Scores: Score 0 - 3: 2.5% MACE over next 6 weeks - Discharge Home Score 4 - 6: 20.3% MACE over next 6 weeks - Admit for Clinical Observation Score 7 - 10: 72.7% MACE over next 6 weeks - Early Invasive Strategies Radiology/Procedures: Radiology/Procedures: PROCEDURE: FOOT RIGHT 3V EXAM: Right foot, 3 views. HISTORY: Pain. COMPARISON: None. FINDINGS: 3 views the right foot are obtained. There is chronic deformity of the first proximal phalanx and widening of the first interphalangeal joint. There is suspected degenerative subchondral cyst formation and subchondral sclerosis involving the first metatarsal head. No avascular necrosis is seen. There is a small plantar spur. IMPRESSION: 1. Chronic appearing changes involving the first phalanx. 2. No acute osseous finding.[] Course & Med Decision Making: Course & Med Decision Making Pertinent Labs and Imaging studies reviewed. (See chart for details) [] Dragon Disclaimer: Dragon Disclaimer: This electronic medical record was generated, in whole or in part, using a voice recognition dictation system. Departure Departure Impression: Primary Impression: Chronic pain in right foot Disposition: 01 DC HOME SELF CARE/HOMELESS Condition: STABLE Referrals: BROOKLYNN ROGERS MD Patient Instructions: Musculoskeletal Pain Additional Instructions: Fill the prescription and take as directed, do not take Ibuprofen while taking Naproxen. Follow up with DR. Rogers's office for further evaluation of chronic pain. Return to the ER if symptoms worsen. Scripts Naproxen (NAPROXEN) 500 Mg Tablet 1 TAB PO BID PRN for PAIN for 10 Days, #20 TAB 0 Refills Prov: MELISSA CASTLE RECREATION DIRECTOR 08/06/20 MELISSA CASTLE RECREATION DIRECTOR Aug 06, 2020 13:33
[2020-08-06] MEDS ORDERED: NAPR-514 PO (13:37)
[2020-08-06] MEDS ORDERED: HYDROcodone/APAP 5/325MG 1 TAB TABLET PO ONE (13:45)
== END 2020-08-06 13:46 | disposition home or self-care (01) ==
LOC: ER 09:27
DX: M79.671 Pain in right foot (principal); G89.29 Other chronic pain; F17.200 Nicotine dependence, unspecified, uncomplicated; Z88.2 Allergy status to sulfonamides
CPT/HCPCS: 73630; 99283